=== PATIENT | male | born 1995 | race Caucasian/White ===

== ENCOUNTER 2022-05-25 00:15 | Emergency (ER) | payer MEDICAID, OTHER ==
[~2022-05-25] VITALS: Ht 177.8 cm; Wt 79.0 kg
[2022-05-25 06:30] VITALS: BP 110/56
[2022-05-25] MEDS ORDERED: KETOROLAC 15MG/ML VIAL IM ONE (06:30)
[2022-05-25] MEDS ORDERED: NAPR500T7 MT (07:55)
== END 2022-05-25 08:30 | disposition home or self-care (01) ==
LOC: ER 00:15
DX: S62.616A Displaced fracture of proximal phalanx of right little finger, initial encounter for closed fracture (principal); V00.131A Fall from skateboard, initial encounter; Y93.51 Activity, roller skating (inline) and skateboarding; Y92.89 Other specified places as the place of occurrence of the external cause
CPT/HCPCS: 73110; 73130; 96372; 99284; J1885; Z7610